=== PATIENT | male | born 1990 | race Caucasian/White ===

== ENCOUNTER 2016-09-24 16:46 | Emergency (ER) | payer OTHER ==
[~2016-09-24] VITALS: Ht 177.8 cm; Wt 114.0 kg
[~2016-09-24 16:46] MED LIST: ALPR.5T PO; ALPR0.5T7 PO; AMOX500C2 PO; ASPI1TAB22 PO; AURODEX10M RIGHT EAR; CLIN60GE2 TOP; ENAL20TA PO; HYDR-3720 PO; NAPR-243 PO; PANT40TA2 PO; SUCR1TAB36 PO; SULF1TAB38 PO; VILA20TA PO
--- NOTE | 2016-09-24 17:22 | ED Back Pain ---
General Stated Complaint: L SIDE BACK PAIN Source of Information: Patient Exam Limitations: No Limitations History of Present Illness Initial Comments To ER with sudden onset of excruciating left thoracic back pain that began today when he was lifting up the front of his lawnmower. Pain does not radiate. Pain is worsened by movement. He is already on Soma and etodolac for low back pain. Location: Paraspinous Muscles Timing/Duration: 1-2 Days Severity: Moderate Pain/Injury Location: Back Method of Injury: Other (lifting) Allergies and Home Medications Allergies Coded Allergies: meperidine (Unverified Allergy, Unknown, 09/24/14) Home Medications Alprazolam 0.5 Mg Tablet, 0.5 MG PO TID PRN for ANXIETY, (Reported) Enalapril Maleate 20 Mg Tablet, 20 MG PO DAILY, (Reported) Pantoprazole Sodium 40 Mg Tablet.dr, 40 MG PO DAILY, #30 Ref 6 Prescribed by: CAROLINE JERONIMO on 02/15/16 0911 Sucralfate 1 Gm Tablet, 1 GM PO QID, #120 Prescribed by: CAROLINE JERONIMO on 02/15/16 0911 Constitutional: see HPI EENTM: see HPI Respiratory: no symptoms reported Cardiovascular: no symptoms reported Genitourinary: no symptoms reported Musculoskeletal: see HPI, back pain Skin: no symptoms reported Psychiatric/Neurological: No Symptoms Reported Past Qekpwqe-Jkienm-Enqnfx Hx Patient Social History Type Used: Cigarettes Recent Foreign Travel: No Contact w/Someone Who Travel: No Immunizations Up To Date Tetanus Booster (TDap): Less than 5yrs Surgeries HX Surgeries: Yes (tonsill) Respiratory Hx Respiratory Disorders: No Cardiovascular Hx Cardiac Disorders: No Neurological Hx Neurological Disorders: No Reproductive System Hx Reproductive Disorders: No HIV/AIDS: No Genitourinary Hx Genitourinary Disorders: No Gastrointestinal Hx Gastrointestinal Disorders: No Gastrointestinal Disorders: Chronic Diarrhea Musculoskeletal Hx Musculoskeletal Disorders: No Endocrine Hx Endocrine Disorders: No HEENT HX ENT Disorders: Yes Loss of Vision: Denies Hearing Impairment: Denies Cancer Hx Cancer: No Psychosocial Hx Psychiatric Problems: No Behavioral Health Disorders: Anxiety Integumentary HX Skin/Integumentary Disorder: Yes (DRY SKIN) Blood Transfusions Hx Blood Disorders: No Adverse Reaction to a Blood Tr: No Family Medical History Family Medial History: Alcoholism 19 FATHER Arthritis G8 SISTER Colon cancer 19 MOTHER Hypertension 19 MOTHER GRANDMOTHER Myocardial infarction GRANDFATHER Severe allergy 19 MOTHER Thyroid disease 19 MOTHER No Family History of: AIDS Abdominal aortic aneurysm Cyrus's disease Alzheimer's disease Aphasia Asthma Cancer of mouth Cardiovascular disease Cataracts Completed stroke Congenital disease Congenital heart disease Coronary thrombosis Cystic fibrosis Deafness or hearing loss Dementia Diabetes mellitus Drug abuse Dysphasia Fibrocystic disease of breast Gastroenteritis Glaucoma Headache disorder Hypercholesterolemia Infertility Kidney disease Neoplasm Not obtainable due to adoption Osteoporosis Parkinson's disease Prostate cancer Psychosocial problem Respiratory disorder Seizure disorder Tuberculosis Visual disorder Physical Exam Vital Signs Capillary Refill : General Appearance: No Apparent Distress, WD/WN HEENT: PERRL/EOMI, TMs Normal Respiratory: No Accessory Muscle Use, No Respiratory Distress Gastrointestinal: Non Tender, Soft Back: Normal Inspection, Other (tenderness to the left side of the thoracic spine at about the T5 to T7 range. No erythema, no crepitus,) Extremity: Normal Capillary Refill, Normal Inspection Neurologic/Psychiatric: Alert, Oriented x3, No Motor/Sensory Deficits Skin: Normal Color, Warm/Dry Progress/Results/Core Measures Results/Orders My Orders Orders - LB CHEN APRN Ketorolac Injection (Toradol Injection) (09/24/16 17:30) Ribs, Left 2-3 Views (09/24/16 17:19) Lumbar Spine - 2-3 Views (09/24/16 17:19) Departure Impression Impression: Primary Impression: Back pain Disposition: 01 HOME, SELF-CARE Condition: Stable Departure-Patient Inst. Decision time for Depature: 17:22 Referrals: MANDY KILLIAN MD (PCP/Family) Primary Care Physician Patient Instructions: Upper Back Pain Add. Discharge Instructions: 1. Follow-up Dr. Killian tomorrow 2. Continue taking your etodolac and Soma. LB CHEN APRN Sep 24, 2016 17:22
[2016-09-24] MEDS ORDERED: KETOROLAC 60 MG/2 ML VIAL IM ONE (17:30)
--- NOTE | 2016-09-24 18:08 | Diagnostic Imaging Report ---
EXAMINATION: Left ribs, 3 views. COMPARISON: Chest radiographs September 24, 2014. HISTORY: 26-year-old male, mid to lower left-sided rib pain. FINDINGS: There is no identified left-sided rib fracture. There is no identified left-sided pneumothorax or pleural effusion. The left lung appears clear. IMPRESSION: No identified acute bony abnormality of the left ribs. Dictated by: Dictated on workstation # [id number]
--- NOTE | 2016-09-24 18:08 | Diagnostic Imaging Report ---
EXAMINATION: Lumbar spine radiographs, 3 views. COMPARISON: None. HISTORY: 26-year-old male, injury lifting mower. Mid to lower back pain on the left. FINDINGS: There are five normal type lumbar vertebral bodies. The alignment of the lumbar spine is unremarkable. There is no identified compression deformity or acute fracture. There are limitations for assessment of pars interarticularis defects without oblique views. The disc heights are well preserved. There are no facet degenerative changes. Unremarkable appearance of the sacroiliac joints. IMPRESSION: Normal radiographs of the lumbar spine. Dictated by: Dictated on workstation # [id number]
[2016-09-24 18:19] VITALS: BP 148/95
== END 2016-09-24 18:19 | disposition home or self-care (01) ==
LOC: EDUNIT# 16:46 → ER 16:48
DX: M54.5 Low back pain (principal)
CPT/HCPCS: 71100; 72100; 96372; 99281

== ENCOUNTER 2016-11-16 20:34 | Emergency (ER) | payer BC, OTHER ==
[~2016-11-16] VITALS: Ht 175.3 cm; Wt 109.0 kg
[2016-11-16] MEDS ORDERED: NS IV 1000 ML 1,000 ML IV ONE (21:12)
[2016-11-16] MEDS ORDERED: METOCLOPRAMIDE INJ 10 MG/2 ML (REGLAN) IVP ONE (21:15)
[2016-11-16] MEDS ORDERED: diphenhydrAMINE 50 MG/ML INJ (BENADRYL) IVP ONE (21:15)
[2016-11-16] MEDS ORDERED: KETOROLAC 30 MG/ML VIAL IVP ONE (21:15)
[2016-11-16] MEDS ORDERED: DEXAMETHASONE PF 10 MG/ML (DECADRON) VIAL IV ONE (21:15)
--- NOTE | 2016-11-16 21:45 | Diagnostic Imaging Report ---
PROCEDURE: CT head without contrast. TECHNIQUE: Multiple contiguous axial images were obtained through the brain without the use of intravenous contrast. INDICATION: Headache. COMPARISON: None. FINDINGS: No acute intracranial hemorrhage, mass effect or edema is seen. The wells-white junction is preserved. Ventricles appear normal. No focal abnormality is suspected. There is a small mucous retention cyst or polyp in the right maxillary sinus. IMPRESSION: No evidence of an acute intracranial abnormality. Incidental right maxillary sinus mucus retention cyst or polyp. Dictated by: Dictated on workstation # [id number]
--- NOTE | 2016-11-16 22:14 | ED Headache ---
General Chief Complaint: Head/Cervical Problems Stated Complaint: HEADACHE Nursing Triage Note: C/O HEADACHE X 2 DAYS Nursing Sepsis Screen: No Definite Risk Source: patient Exam Limitations: no limitations History of Present Illness Time seen by provider: 21:09 Initial Comments Patient presents c/ c/o RODRIGUEZ times 2 days. Gotten progressively worse. Feels like his head is going to explode. Has been working out in the heat which hasn' t helped. Has had one previous similar RODRIGUEZ in the past. RODRIGUEZ is diffuse/ generalized. Is photophobic. A little nauseated. No known fever. Timing/Duration: other (2 days) Severity/Quality: severe, constant, throbbing Location: global Prior Headaches/Recent Trauma: no recent headache/trauma, occasional headaches Modifying Factors: worse with exposure to light Associated Symptoms: denies symptoms Allergies and Home Medications Allergies Coded Allergies: meperidine (Unverified Allergy, Unknown, 09/24/14) Home Medications Enalapril Maleate 20 Mg Tablet, 20 MG PO DAILY, (Reported) Constitutional: see HPI Psychiatric/Neurological: See HPI, Headache All Other Systems Reviewed Negative Unless Noted: Yes Past Gfwihge-Tiyxva-Odvzmp Hx Patient Social History Alcohol Use: Occasionally Uses Recreational Drug Use: No Smoking Status: Former Smoker Type Used: Cigarettes 2nd Hand Smoke Exposure: No Recent Foreign Travel: No Contact w/Someone Who Travel: No Recent Infectious Disease Expo: No Recent Hopitalizations: No Immunizations Up To Date Tetanus Booster (TDap): Less than 5yrs Surgeries HX Surgeries: Yes (tonsill) Respiratory Hx Respiratory Disorders: No Cardiovascular Hx Cardiac Disorders: No Neurological Hx Neurological Disorders: No Neurological Disorders: Headaches /Migraines Reproductive System Hx Reproductive Disorders: No HIV/AIDS: No Genitourinary Hx Genitourinary Disorders: No Gastrointestinal Hx Gastrointestinal Disorders: No Gastrointestinal Disorders: Chronic Diarrhea Musculoskeletal Hx Musculoskeletal Disorders: No Endocrine Hx Endocrine Disorders: No HEENT HX ENT Disorders: Yes Loss of Vision: Denies Hearing Impairment: Denies Cancer Hx Cancer: No Psychosocial Hx Psychiatric Problems: No Behavioral Health Disorders: Anxiety Integumentary HX Skin/Integumentary Disorder: Yes (DRY SKIN) Blood Transfusions Hx Blood Disorders: No Adverse Reaction to a Blood Tr: No Family Medical History Family Medial History: Alcoholism 19 FATHER Arthritis G8 SISTER Colon cancer 19 MOTHER Hypertension 19 MOTHER GRANDMOTHER Myocardial infarction GRANDFATHER Severe allergy 19 MOTHER Thyroid disease 19 MOTHER No Family History of: AIDS Abdominal aortic aneurysm Cyrus's disease Alzheimer's disease Aphasia Asthma Cancer of mouth Cardiovascular disease Cataracts Completed stroke Congenital disease Congenital heart disease Coronary thrombosis Cystic fibrosis Deafness or hearing loss Dementia Diabetes mellitus Drug abuse Dysphasia Fibrocystic disease of breast Gastroenteritis Glaucoma Headache disorder Hypercholesterolemia Infertility Kidney disease Neoplasm Not obtainable due to adoption Osteoporosis Parkinson's disease Prostate cancer Psychosocial problem Respiratory disorder Seizure disorder Tuberculosis Visual disorder Physical Exam Vital Signs Vital Sign - Last 12Hours 11/16/16 20:47 Temp 98.1 Pulse 81 Resp 18 B/P (MAP) 170/114 Pulse Ox 97 Capillary Refill : Less Than 3 Seconds General Appearance: WD/WN, moderate distress HEENT: PERRL/EOMI, normal ENT inspection, photophobia Neck: normal inspection Cardiovascular: regular rate, rhythm Respiratory: no respiratory distress Psychiatric: alert, oriented x 3, other (appears obviously uncomfortable) Crainal Nerves: normal hearing, normal speech, PERRL Motor/Sensory: no motor deficit, no sensory deficit, no pronator drift, negative Babinski's sign Reflexes: 2+ Knee (R), 2+ Knee (L) Skin: warm/dry, No rash Progress/Results/Core Measures Results/Orders My Orders Orders - CECELIA UMANA DO Saline Lock/Iv-Start (11/16/16 21:12) Ct Head Wo (11/16/16 21:12) Saline Lock/Iv-Start (11/16/16 21:12) Ns Iv 1000 Ml (Sodium Chloride 0.9%) (11/16/16 21:12) Metoclopramide Injection (Reglan Injecti (11/16/16 21:15) Dexamethasone Pf Injection (Decadron Pf (11/16/16 21:15) Ketorolac Injection (Toradol Injection) (11/16/16 21:15) Diphenhydramine Injection (Benadryl Inje (11/16/16 21:15) Medications Given in ED Current Medications Medications Dose Ordered Sig/Jerson Route Start Time Stop Time Status Last Admin Dose Admin Dexamethasone Sodium Phosphate 10 mg ONCE ONCE IV 11/16/16 21:15 11/16/16 21:16 DC 11/16/16 21:33 10 MG Diphenhydramine HCl 50 mg ONCE ONCE IVP 11/16/16 21:15 11/16/16 21:16 DC 11/16/16 21:33 50 MG Ketorolac Tromethamine 30 mg ONCE ONCE IVP 11/16/16 21:15 11/16/16 21:16 DC 11/16/16 21:33 30 MG Metoclopramide HCl 10 mg ONCE ONCE IVP 11/16/16 21:15 11/16/16 21:16 DC 11/16/16 21:33 10 MG Sodium Chloride 1,000 ml @ 0 mls/hr Q0M ONCE IV 11/16/16 21:12 11/16/16 21:15 DC 11/16/16 21:32 0 MLS/HR Vital Signs/I&O Vital Sign - Last 12Hours 11/16/16 20:47 Temp 98.1 Pulse 81 Resp 18 B/P (MAP) 170/114 Pulse Ox 97 Blood Pressure Mean: 132 Progress Note : Progress Note Much improved p/ migraine cocktail. Wants to go home. Departure Impression Impression: Primary Impression: Migraine Disposition: 01 HOME, SELF-CARE Condition: Improved Departure-Patient Inst. Decision time for Depature: 22:13 Referrals: MANDY KILLIAN MD (PCP/Family) Primary Care Physician Patient Instructions: Migraine Headache (DC) CECELIA UMANA DO Nov 16, 2016 22:13
[2016-11-16 22:24] VITALS: BP 150/91
== END 2016-11-16 22:23 | disposition home or self-care (01) ==
LOC: EDUNIT# 20:34 → ER 20:36
DX: G43.909 Migraine, unspecified, not intractable, without status migrainosus (principal); Z87.891 Personal history of nicotine dependence
CPT/HCPCS: 70450

== ENCOUNTER 2018-03-24 11:53 | Emergency (ER) | payer BC, OTHER ==
[~2018-03-24] VITALS: Ht 177.8 cm; Wt 115.7 kg
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
--- NOTE | 2018-03-24 12:12 | ED GU-Male ---
General Chief Complaint: -Male Stated Complaint: PRESSURE BEHIND TESTACLES Nursing Triage Note: Patient advises that for one week he has been experincing testicular pain. He advises that it is uncomfortable to sit for prolonged periods of time and has become progressively worse. Source: patient Exam Limitations: no limitations History of Present Illness Date Seen by Provider: Mar 24, 2018 Time Seen by Provider: 11:56 Initial Comments The patient presents to the ER by private conveyance with chief complaint of having some left inguinal pain. His is worse when he bends over or squats. He says been very uncomfortable sitting down and asked to lift his leg up. His pain started about 7 days ago and is progressively gotten worst. He's never had an inguinal hernia or any surgeries on his abdomen. He does take blood pressure medicines and follow-up with Dr. Pillai. He has not been seen for this pain yet. Bowel movement this morning and has been having regular bowel day. No fevers or chills. No dysuria comfort or discharge. Allergies and Home Medications Allergies Coded Allergies: meperidine (Unverified Allergy, Unknown, 03/24/18) Home Medications Enalapril Maleate 20 Mg Tablet, 20 MG PO DAILY, (Reported) Patient Home Medication List Home Medication List Reviewed: Yes Review of Systems Review of Systems Constitutional: No chills, No diaphoresis EENTM: No hearing loss, No ear pain Respiratory: No cough, No short of breath Cardiovascular: No chest pain, No edema Gastrointestinal: No abdominal pain, No constipation, No diarrhea Genitourinary: denies discharge, denies dysuria Past Ohofjxi-Ylpshs-Koqvla Hx Patient Social History Alcohol Use: Denies Use Recreational Drug Use: No Smoking Status: Never a Smoker Type Used: Cigarettes 2nd Hand Smoke Exposure: No Recent Foreign Travel: No Contact w/Someone Who Travel: No Recent Infectious Disease Expo: No Recent Hopitalizations: No Immunizations Up To Date Tetanus Booster (TDap): Less than 5yrs Past Medical History Surgeries: Yes Respiratory: No Cardiac: Yes Hypertension Neurological: Yes Headaches /Migraines Reproductive Disorders: No HIV/AIDS: No Genitourinary: No Gastrointestinal: No Chronic Diarrhea Musculoskeletal: No Endocrine: No Loss of Vision: Denies Hearing Impairment: Denies Cancer: No Psychosocial: Yes Anxiety Integumentary: Yes (DRY SKIN) Blood Disorders: No Adverse Reaction/Blood Tranf: No Family Medical History Alcoholism 19 FATHER Arthritis G8 SISTER Colon cancer 19 MOTHER Hypertension 19 MOTHER GRANDMOTHER Myocardial infarction GRANDFATHER Severe allergy 19 MOTHER Thyroid disease 19 MOTHER No Family History of: AIDS Abdominal aortic aneurysm [place]'s disease Alzheimer's disease Aphasia Asthma Cancer of mouth Cardiovascular disease Cataracts Completed stroke Congenital disease Congenital heart disease Coronary thrombosis Cystic fibrosis Deafness or hearing loss Dementia Diabetes mellitus Drug abuse Dysphasia Fibrocystic disease of breast Gastroenteritis Glaucoma Headache disorder Hypercholesterolemia Infertility Kidney disease Neoplasm Not obtainable due to adoption Osteoporosis Parkinson's disease Prostate cancer Psychosocial problem Respiratory disorder Seizure disorder Tuberculosis Visual disorder Physical Exam Vital Signs Vital Signs - First Documented Capillary Refill : Less Than 3 Seconds Height, Weight, BMI Height: 5'10.00" Weight: 255lbs. 4.0oz. 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 The hernia is easily reducible. He had a bowel movement today. We have encouraged him to stay regular with some fiber and follow up with the surgeon. He had an upper endoscopy done by Dr. Garcia and would prefer to go back to him so we'll make referral back to Dr. Garcia. Departure Impression Primary Impression: Left inguinal hernia Disposition: 01 HOME, SELF-CARE Condition: Stable Departure-Patient Inst. Decision time for Depature: 12:10 Referrals: KATEY GARCIA FLOYD R MD (PCP/Family) Primary Care Physician Patient Instructions: Groin Hernia (DC) Add. Discharge Instructions: Tomorrow morning call Dr. Garcia's office at the above mentioned phone number and request an appointment for your left inguinal hernia. Eat a high-fiber diet such as please see green vegetables, FiberCon, Metamucil etc. If you have a hard time having a bowel movement you can use MiraLAX. If you 're unable to pass a bowel movement or your having constant, bulging, worsening pain then you should return to the ER for further evaluation. Heat, Tylenol 1000 mg every 8 hours, ibuprofen 800 mg every 8 hours as needed for pain. No lifting over 10 pounds until released by the surgeon. All discharge instructions reviewed with patient and/or family. Voiced understanding. Work/School Note: Work Release Form Date Seen in the Emergency Department: Mar 24, 2018 Return to Work: Mar 25, 2018 Restrictions: Need Release from Doctor Other Restrictions Listed Below: Do not lift over 10 pounds until released by Copy Copies To 1: KATEY GARCIA DO; MANDY PILLAI MD, TITUS J Mar 24, 2018 12:12
[2018-03-24 12:18] VITALS: BP 149/105
== END 2018-03-24 12:21 | disposition home or self-care (01) ==
LOC: EDUNIT# 11:53 → ER 11:54
DX: K40.90 Unilateral inguinal hernia, without obstruction or gangrene, not specified as recurrent (principal); I10 Essential (primary) hypertension; G43.909 Migraine, unspecified, not intractable, without status migrainosus; F41.9 Anxiety disorder, unspecified; Z87.19 Personal history of other diseases of the digestive system; Z88.8 Allergy status to other drugs, medicaments and biological substances; Z80.0 Family history of malignant neoplasm of digestive organs; Z82.49 Family history of ischemic heart disease and other diseases of the circulatory system
CPT/HCPCS: 99283

== ENCOUNTER → 2018-04-11 | Outpatient (CLI) | payer OTHER ==
--- NOTE | 2018-04-11 16:23 | Diagnostic Imaging Report ---
Indication: Left groin pain one week ago. Sonographic interrogation of left groin demonstrates 1.3 x 1.8 x 0.9 cm lymph node. No fluid collection or other mass is seen. No hernia is detected. Impression: Left groin lymph node. No other abnormality is detected. Dictated by: Dictated on workstation # [id number]
== END ==
LOC: RAD 14:38
PROVIDERS: ATTEND Surgery
DX: R10.31 Right lower quadrant pain (principal); R10.32 Left lower quadrant pain
CPT/HCPCS: 76881

== ENCOUNTER 2019-10-23 12:49 | Emergency (ER) | payer BC, OTHER ==
[~2019-10-23] VITALS: Ht 177 cm; Wt 121.0 kg
[2019-10-23] MEDS ORDERED: KETOROLAC 30 MG/ML VIAL IVP ONE (13:00)
[2019-10-23] MEDS ORDERED: meTOprolol 5 MG/5 ML (LOPRESSOR) VIAL IV ONE (13:00)
[2019-10-23] MEDS ORDERED: PROCHLORPERAZINE 10 MG/2ML INJ (COMPAZINE) IV ONE (13:00)
[2019-10-23] MEDS ORDERED: diphenhydrAMINE 50 MG/ML INJ (BENADRYL) IVP ONE (13:00)
--- NOTE | 2019-10-23 13:02 | ED Headache ---
General Stated Complaint: HIGH BP;HEADACHE Source: patient Exam Limitations: no limitations History of Present Illness Date Seen by Provider: October 23, 2019 Time Seen by Provider: 13:01 Initial Comments To ER per private vehicle with reports of high blood pressure about 165/90. He has a headache for about the past 3 days without vomiting. No fever no chills no neck stiffness. He had been off of his blood pressure medications for quite a while, recently restarted on it. Timing/Duration: other (2-3 days) Severity/Quality: moderate, constant Location: frontal Associated Symptoms: No confusion, No nausea/vomiting, No stiff neck Allergies and Home Medications Allergies Coded Allergies: meperidine (Unverified Allergy, Unknown, 03/24/18) Home Medications Enalapril Maleate 20 Mg Tablet, 20 MG PO DAILY, (Reported) Patient Home Medication List Home Medication List Reviewed: Yes Review of Systems Review of Systems Constitutional: see HPI Eyes: No Symptoms Reported Ears, Nose, Mouth, Throat: no symptoms reported Respiratory: no symptoms reported Cardiovascular: no symptoms reported Genitourinary: no symptoms reported Musculoskeletal: no symptoms reported Skin: see HPI Psychiatric/Neurological: See HPI, Headache Past [id number]-[id number] Hx Patient Social History Type Used: Cigarettes 2nd Hand Smoke Exposure: No Recent Foreign Travel: No Contact w/Someone Who Travel: No Recent Hopitalizations: No Immunizations Up To Date Tetanus Booster (TDap): Less than 5yrs Past Medical History Surgeries: Yes Respiratory: No Cardiac: Yes Hypertension Neurological: Yes Headaches /Migraines Reproductive Disorders: No HIV/AIDS: No Genitourinary: No Gastrointestinal: No Chronic Diarrhea Musculoskeletal: No Endocrine: No Loss of Vision: Denies Hearing Impairment: Denies Cancer: No Psychosocial: Yes Anxiety Integumentary: Yes (DRY SKIN) Blood Disorders: No Adverse Reaction/Blood Tranf: No Family Medical History Alcoholism 19 FATHER Arthritis G8 SISTER Colon cancer 19 MOTHER Hypertension 19 MOTHER GRANDMOTHER Myocardial infarction GRANDFATHER Severe allergy 19 MOTHER Thyroid disease 19 MOTHER No Family History of: AIDS Abdominal aortic aneurysm [place]'s disease Alzheimer's disease Aphasia Asthma Cancer of mouth Cardiovascular disease Cataracts Completed stroke Congenital disease Congenital heart disease Coronary thrombosis Cystic fibrosis Deafness or hearing loss Dementia Diabetes mellitus Drug abuse Dysphasia Fibrocystic disease of breast Gastroenteritis Glaucoma Headache disorder Hypercholesterolemia Infertility Kidney disease Neoplasm Not obtainable due to adoption Osteoporosis Parkinson's disease Prostate cancer Psychosocial problem Respiratory disorder Seizure disorder Tuberculosis Visual disorder Physical Exam Vital Signs Vital Signs - First Documented 10/23/19 13:00 Temp 36.6 Pulse 112 Resp 18 B/P (MAP) 185/123 (143) Pulse Ox 97 O2 Delivery Room Air Capillary Refill : Height, Weight, BMI Height: 5'10.00" Weight: 255lbs. 4.0oz. 115.836341gw; 36.1 BMI Method:Stated General Appearance: WD/WN, no apparent distress HEENT: PERRL/EOMI, normal ENT inspection Neck: non-tender, full range of motion Respiratory: no respiratory distress, no accessory muscle use Gastrointestinal: normal bowel sounds, non tender Extremities: normal range of motion, non-tender Psychiatric: alert, oriented x 3 Crainal Nerves: normal hearing, normal speech, PERRL Skin: normal color, warm/dry Progress/Results/Core Measures Results/Orders Lab Results Laboratory Tests Test 10/23/19 13:20 Range/Units White Blood Count 8.7 4.3-11.0 10^3/uL Red Blood Count 5.81 4.35-5.85 10^6/uL Hemoglobin 18.1 H 13.3-17.7 G/DL Hematocrit 51 40-54 % Mean Corpuscular Volume 87 80-99 FL Mean Corpuscular Hemoglobin 31 25-34 PG Mean Corpuscular Hemoglobin Concent 36 32-36 G/DL Red Cell Distribution Width 13.0 10.0-14.5 % Platelet Count 190 130-400 10^3/uL Mean Platelet Volume 9.3 7.4-10.4 FL Neutrophils (%) (Auto) 56 42-75 % Lymphocytes (%) (Auto) 32 12-44 % Monocytes (%) (Auto) 8 0-12 % Eosinophils (%) (Auto) 4 0-10 % Basophils (%) (Auto) 0 0-10 % Neutrophils # (Auto) 4.8 1.8-7.8 X 10^3 Lymphocytes # (Auto) 2.8 1.0-4.0 X 10^3 Monocytes # (Auto) 0.7 0.0-1.0 X 10^3 Eosinophils # (Auto) 0.4 H 0.0-0.3 10^3/uL Basophils # (Auto) 0.0 0.0-0.1 10^3/uL Sodium Level 139 135-145 MMOL/L Potassium Level 3.9 3.6-5.0 MMOL/L Chloride Level 105 98-107 MMOL/L Carbon Dioxide Level 23 21-32 MMOL/L Anion Gap 11 5-14 MMOL/L Blood Urea Nitrogen 9 7-18 MG/DL Creatinine 0.82 0.60-1.30 MG/DL Estimat Glomerular Filtration Rate > 60 BUN/Creatinine Ratio 11 Glucose Level 85 70-105 MG/DL Calcium Level 9.3 8.5-10.1 MG/DL My Orders Orders - LB CHEN APRN Cbc With Automated Diff (10/23/19 12:57) Basic Metabolic Panel (10/23/19 12:57) Ed Iv/Invasive Line Start (10/23/19 12:57) Metoprolol Tartrate Injection (Lopressor (10/23/19 13:00) Ketorolac Injection (Toradol Injection) (10/23/19 13:00) Prochlorperazine Injection (Compazine In (10/23/19 13:00) Diphenhydramine Injection (Benadryl Inje (10/23/19 13:00) Erythrocyte Sedimentation Rate (10/23/19 13:05) Medications Given in ED Current Medications Medications Dose Ordered Sig/Jerson Route Start Time Stop Time Status Last Admin Dose Admin Diphenhydramine HCl 25 mg ONCE ONCE IVP 10/23/19 13:00 10/23/19 13:01 DC 10/23/19 13:07 25 MG Ketorolac Tromethamine 15 mg ONCE ONCE IVP 10/23/19 13:00 10/23/19 13:01 DC 10/23/19 13:11 15 MG Metoprolol Tartrate 5 mg ONCE ONCE IV 10/23/19 13:00 10/23/19 13:01 DC 10/23/19 13:20 5 MG Prochlorperazine Edisylate 5 mg ONCE ONCE IV 10/23/19 13:00 10/23/19 13:01 DC 10/23/19 13:12 5 MG Vital Signs/I&O 10/23/19 10/23/19 13:00 13:33 Temp 36.6 Pulse 112 86 Resp 18 16 B/P (MAP) 185/123 (143) 141/89 (106) Pulse Ox 97 95 O2 Delivery Room Air Room Air Departure Communication (Admissions) I did recommend a CT scan of the head to evaluate the cause of headache. He declines, states he does not want that. 1355- headache is gone, blood pressure down to 137/85 heart rate 83. Hed like to go on home now. Impression Primary Impression: Hypertension Qualified Codes: I10 - Essential (primary) hypertension Additional Impression: Headache Qualified Codes: R51 - Headache Disposition: 01 HOME, SELF-CARE Condition: Stable Departure-Patient Inst. Decision time for Depature: 13:56 Referrals: MANDY KLILIAN MD (PCP/Family) Primary Care Physician Patient Instructions: Headache, Adult, High Blood Pressure (DC) Add. Discharge Instructions: 1. Return to ER for any concerns 2. Follow-up with your doctor next week LB CHEN APRN October 23, 2019 13:02
[2019-10-23 13:33] VITALS: BP 141/89
[2019-10-23 13:36] LABS: BASOPHILS % (AUTO) 0 % (0-10); EOSINOPHILS # (AUTO) 0.4 10^3/uL (0.0-0.3); EOSINOPHILS % (AUTO) 4 % (0-10); HEMATOCRIT 51 % (40-54); HEMOGLOBIN 18.1 G/DL (13.3-17.7); LYMPHOCYTES # (AUTO) 2.8 X 10^3 (1.0-4.0); LYMPHOCYTES % (AUTO) 32 % (12-44); MEAN CORPUSCULAR HEMOGLOBIN 31 PG (25-34); MEAN CORPUSCULAR HGB CONC 36 G/DL (32-36); MEAN CORPUSCULAR VOLUME 87 FL (80-99); MEAN PLATELET VOLUME 9.3 FL (7.4-10.4); MONOCYTES # (AUTO) 0.7 X 10^3 (0.0-1.0); MONOCYTES % (AUTO) 8 % (0-12); NEUTROPHILS # (AUTO) 4.8 X 10^3 (1.8-7.8); NEUTROPHILS % (AUTO) 56 % (42-75); PLATELET COUNT 190 10^3/uL (130-400); WHITE BLOOD COUNT 8.7 10^3/uL (4.3-11.0)
[2019-10-23 13:42] LABS: CHLORIDE 105 MMOL/L (98-107); POTASSIUM 3.9 MMOL/L (3.6-5.0); SODIUM 139 MMOL/L (135-145)
[2019-10-23 13:44] LABS: CALCIUM 9.3 MG/DL (8.5-10.1); GLUCOSE 85 MG/DL (70-105)
[2019-10-23 13:46] LABS: CARBON DIOXIDE 23 MMOL/L (21-32)
[2019-10-23 13:48] LABS: CREATININE SERUM 0.82 MG/DL (0.60-1.30); GFR ESTIMATED > 60
[2019-10-23 13:49] LABS: BUN/CREATININE RATIO 11
[2019-10-23 13:58] VITALS: BP 137/85
[2019-10-23 13:59] VITALS: BP 137/85
[2019-10-23 14:00] LABS: ERYTHROCYTE SEDIMENTATION RATE 1 MM/HR (0-15)
--- OUTSIDE RECORDS SUMMARY | 2019-10-23 14:11 | XMS REPORT ---
Author Author [facility] Address [address] [address] Care Team Providers Care Operations Dispatcher Name Role Phone SEGLIE, MANDY R Unavailable LB CHEN APRN Unavailable Unavailable MARIA D CASTRO, MANDY R Unavailable Unavailable MARIA D CASTRO, MANDY R Unavailable Unavailable SEGLIE, MANDY R Unavailable CECELIA UMANA DO Unavailable Unavailable GARCIA DO, KATYE D Unavailable Unavailable GRUPO DO, ABBY K Unavailable Unavailable GARCIA DO, KATEY D Unavailable Unavailable IRA CASTRO, VICTOR HUGO Sandy Unavailable Unavailable Unavailable Unavailable Unavailable Unavailable Allergies No Information Medications No Information Problems Active Problems Problem Normalized Date Last Normalized Normalized Provider Fa cility Classification Problem(s) Recorded Problem Problem Sta tus Duration Acute Acute Episodic Active MANDY SEGLIE , Not Avai lable bronchitis (4 bronchitis MD (31441) sources.) Other upper Acute upper Episodic Active MANDY SEGLIE , Not Available respiratory respiratory MD (26700) infections (4 infections of sources.) unspecified site Allergic Allergy status Episodic Active MANDY SEGLIE , No t Available reactions (15 to other MD (58603) sources.) drugs, medicaments and biological substances status Translations: [ DIARRHEA] Anxiety Anxiety Chronic Active SUYAPA KENY Not Availa ble disorders (6 disorder, (98652) sources.) unspecified Essential Essential Chronic Active SUYAPA KENY Not Avail able hypertension (primary) (56729) (6 sources.) hypertension Unclassified Family history Episodic Active SUYAPA KENY N ot Available (6 sources.) of malignant (51725) neoplasm of digestive organs Translations: [ FAMILY HX OF ISCHEM HEART DIS AND OTH DI] Gastritis and Gastritis, Episodic Active KATEY GARCIA , No t Available duodenitis (3 unspecified, DO (18545) sources.) without bleeding Esophageal Gastro-esophag Chronic Active KATEY GACRIA , N ot Available disorders (6 eal reflux DO (56629) sources.) disease without esophagitis Headache; Headache no information Active CECELIA UMANA Not Available including Translations: , DO (40485) migraine (20 [ MIGRAINE, sources.) UNSP, NOT INTRACTABLE, WITHOUT] Abdominal pain Left lower Episodic Active KATEY GARCIA , V CH Via (10 sources.) quadrant pain DO [place] Translations: Hospital - [ RIGHT LOWER Cooper QUADRANT PAIN, (48006) LEFT LOWER QUADRANT PAIN, LEFT LOWER QUADRANT PAIN] Headache, Migraine, Chronic Active MANDY SEGLIE Via [place] ti including unspecified, [address] Hospital migraine (7 not Cooper sources.) intractable, (81580) without status migrainosus Malaise and Other malaise Episodic Active MANDY PILLAI , N ot Available fatigue (4 and fatigue MD (84209) sources.) Screening and Personal Episodic Active CECELIA DONG Not Available history of history of , DO (09997) mental health nicotine and substance dependence abuse codes (13 sources.) Other Personal Episodic Active SUYAPA KENY Not Availa ble gastrointestin history of (77390) al disorders other diseases (6 sources.) of the digestive system Abdominal Unilateral Episodic Active KATEY GARCIA , Not Av ailable hernia (10 inguinal DO (35247) sources.) hernia, without obstruction or gangrene, not specified as recurrent Translations: [ DIAPHRAGMATIC HERNIA WITHOUT OBSTRUCTION] Past or Other Problems Problem Normalized Date Last Normalized Normalized Provider Fa cility Classification Problem(s) Recorded Problem Problem Sta tus Duration External cause Accidents no information no information ABBY DIEUDONNE O , DO Not Available codes: caused by (38863) Cut/antunez (1 other source.) specified cutting and piercing instruments or objects Other Encounter for Episodic Completed ABBY GRUPO , DO Not Available aftercare (3 removal of (21853) sources.) sutures External cause Fall resulting no information no information L JANEEN GRUPO , DO Not Available codes: Fall (1 in striking (79080) source.) against sharp object External cause Home accidents no information no information L JANEEN GRUPO , DO Not Available codes: Place (48754) of occurrence (1 source.) Open wounds of Open wound of Episodic Completed ABBY GRUPO , DO Not Available extremities (1 upper arm, (21280) source.) without mention of complication Nonspecific Other chest Episodic Completed ABBY GRUPO , DO Not Available chest pain (2 pain (74522) sources.) External cause Other external no information no information Enoch LOMBARDO , DO Not Available codes: cause status (67737) Unspecified (1 source.) Other Pain in limb Episodic Completed MANDY PILLAI , Not Available connective MD (45857) tissue disease (2 sources.) Other lower Painful Episodic Completed ABBY LOMABRDO , DO Not Av ailable respiratory respiration (46828) disease (2 sources.) Procedures The data below is from unstructured sourcesNo known history of procedures.No known history of procedures.No known history of procedures.No procedure information available.No procedure information availab le. Immunizations The data below is from unstructured sourcesNo immunization records.No immunization records.No immunization records. Results The data below is from unstructured sourcesNo known relevant diagnostic tests, laboratory data and/or discharge summary.No known relevant diagnostic tests, laboratory data and/or discharge summary.No known relevant diagnostic tests, laboratory data and/or discharge summary.No relevant diagnostic test, laboratory data and/or discharge summary information availab le.No relevant diagnostic test, laboratory data and/or discharge summary informa tion available. Vital Signs The data below is from unstructured sources Vital Response Date/Time Height (Feet) 5 feet 05/2016 2:23pm Height (Inches) 10.00 inches 02/14/2016 2:23pm Height (Calculated Centimeters) 177. 860604 cm 02/14/2016 2:23pm Weight (Pounds) 251 pounds 02/14/2016 2:23pm Weight (Ounces) 4.0 oz 0 02/14/2016 2:23pm Weight (Calculated Grams) 182457.084 gm 02/14/2016 2:23pm Weight (Calculated Kilograms) 113.96 5084 kilograms 02/14/2016 2:23pm Calculated BMI 36.01 05/2016 2:23pm Vital Response Date/Time Temperature (Fahrenheit) 97.8 degree s F (97.6 - 99.5) 02/15/2016 10:55am Temperature (Calculated Celsius) 36. 79739 degrees C (36.4 - 37.5) 02/15/2016 10:55am Temperature Source Tympanic 02/15/2016 10:55am Pulse Rate (adult) 65 bpm (60 - 90) 02/15/2016 10:55am Respiratory Rate 20 bpm (12 - 24) 02/15/2016 10:55am O2 Sat by Pulse Oximetry 98 % (88 - 100) 02/15/2016 10:55am Blood Pressure 110/61 mm Hg 02/15/2016 10:55am Blood Pressure Mean 77 mm Hg 02/15/2016 7:50am Pain Numeric Pain Scale 0-No Pain 02/15/2016 10:55am Pain Intensity 0 2015 10:00am Height (Feet) 5 feet 7:55am Height (Inches) 10.00 inches 02/15/2016 7:55am Height (Calculated Centimeters) 177. 161752 cm 02/15/2016 7:55am Weight (Pounds) 251 pounds 02/15/2016 7:55am Weight (Ounces) 4.0 oz 0 02/15/2016 7:55am Weight (Calculated Grams) 224439.084 gm 02/15/2016 7:55am Weight (Calculated Kilograms) 113.96 5084 kilograms 02/15/2016 7:55am Calculated BMI 36.1 02/02 7:45am Vital Response Date/Time Temperature (Fahrenheit) 98.2 degree s F (97.6 - 99.5) 09/24/2016 5:41pm Temperature (Calculated Celsius) 36. 42434 degrees C (36.4 - 37.5) 09/24/2016 5:41pm Temperature Source Tympanic 09/24/2016 5:41pm Pulse Rate (adult) 88 bpm (60 - 90) 09/24/2016 5:21pm Respiratory Rate 16 bpm (12 - 24) 09/24/2016 5:21pm Blood Pressure 164/104 mm Hg 09/24/2016 5:21pm Blood Pressure Mean 124 mm Hg 09/24/2016 5:21pm Pain Numeric Pain Scale 8 5:41pm Height (Feet) 5 feet 5:21pm Height (Inches) 10.00 inches 09/24/2016 5:21pm Height (Calculated Centimeters) 177. 445657 cm 09/24/2016 5:21pm Weight (Pounds) 251 pounds 09/24/2016 5:21pm Weight (Ounces) 4.0 oz 0 09/24/2016 5:21pm Weight (Calculated Grams) 855386.084 gm 09/24/2016 5:21pm Weight (Calculated Kilograms) 113.96 5084 kilograms 09/24/2016 5:21pm Calculated BMI 36.1 09/03 5:21pm Capillary Refill Capillary Refill Less Than 3 Seconds 09/24/2016 5:21pm Vital Response Date/Time Temperature (Fahrenheit) 97.6 degree s F (97.6 - 99.5) Temperature (Calculated Celsius) 36. 78251 degrees C (36.4 - 37.5) Temperature Source Temporal Pulse Rate (adult) 103 bpm (60 - 90) Respiratory Rate 20 bpm (12 - 24) O2 Sat by Pulse Oximetry 96 % (88 - 100) Blood Pressure 128/68 mm Hg Pain Pain Intensity 0 Height (Feet) 5 feet Height (Inches) 10.00 inches Height (Calculated Centimeters) 177. 426677 cm Weight (Pounds) 251 pounds Weight (Calculated Grams) 784578.686 gm Weight (Calculated Kilograms) 113.85 1686 kilograms Calculated BMI 36.01 Vital Response Date/Time Temperature (Fahrenheit) 98.5 degree s F (97.6 - 99.5) 03/24/2018 12:02pm Temperature (Calculated Celsius) 36. 94138 degrees C (36.4 - 37.5) 03/24/2018 12:02pm Temperature Source Tympanic 03/24/2018 12:02pm Pulse Rate (adult) 86 bpm (60 - 90) 03/24/2018 12:18pm Respiratory Rate 18 bpm (12 - 24) 03/24/2018 12:18pm O2 Sat by Pulse Oximetry 98 % (88 - 100) 03/24/2018 12:18pm Blood Pressure 149/105 mm Hg 03/24/2018 12:18pm Blood Pressure Mean 120 mm Hg (65 - 110) 03/24/2018 12:18pm Pain Numeric Pain Scale 8 12:18pm Height (Feet) 5 feet 12:02pm Height (Inches) 10.00 inches 03/24/2018 12:02pm Height (Calculated Centimeters) 177. 100145 cm 03/24/2018 12:02pm Height Method Stated 12:02pm Weight (Pounds) 255 pounds 03/24/2018 12:02pm Weight (Calculated Grams) 866558.06 gm 03/24/2018 12:02pm Weight (Calculated Kilograms) 115.66 6055 kilograms 03/24/2018 12:02pm Weight Method Stated 12:02pm Capillary Refill Capillary Refill Less Than 3 Seconds 03/24/2018 12:02pm Height 5 ft 10 in 2017 12:02pm Weight 255 lb 03/24/2018 12:02pm Body Mass Index 36.6 kg/m^2 03/24/2018 12:02pm Vital Response Date/Time Temperature (Fahrenheit) 98.5 degree s F (97.6 - 99.5) 03/24/2018 12:02pm Temperature (Calculated Celsius) 36. 36159 degrees C (36.4 - 37.5) 03/24/2018 12:02pm Temperature Source Tympanic 03/24/2018 12:02pm Pulse Rate (adult) 86 bpm (60 - 90) 03/24/2018 12:18pm Respiratory Rate 18 bpm (12 - 24) 03/24/2018 12:18pm O2 Sat by Pulse Oximetry 98 % (88 - 100) 03/24/2018 12:18pm Blood Pressure 149/105 mm Hg 03/24/2018 12:18pm Blood Pressure Mean 120 mm Hg (65 - 110) 03/24/2018 12:18pm Pain Numeric Pain Scale 8 12:18pm Height (Feet) 5 feet 12:02pm Height (Inches) 10.00 inches 03/24/2018 12:02pm Height (Calculated Centimeters) 177. 746962 cm 03/24/2018 12:02pm Height Method Stated 12:02pm Weight (Pounds) 255 pounds 03/24/2018 12:02pm Weight (Calculated Grams) 008755.06 gm 03/24/2018 12:02pm Weight (Calculated Kilograms) 115.66 6055 kilograms 03/24/2018 12:02pm Weight Method Stated 12:02pm Capillary Refill Capillary Refill Less Than 3 Seconds 03/24/2018 12:02pm Height 5 ft 10 in 2017 12:02pm Weight 255 lb 03/24/2018 12:02pm Body Mass Index 36.6 kg/m^2 03/24/2018 12:02pm Interventions No Information Plan of Treatment The data below is from unstructured sources Discharge Date 02/14/16 2:32pm Prescriptions See Medication Section Discharge Date 02/15/16 11:05am Instructions/Education Provided EGD- ESOPHAGOGASTRODUODENOSCOPY Hiatal Hernia (GEN) Gastritis (GEN) Prescriptions See Medication Section Discharge Date 09/24/16 6:19pm Disposition 01 HOME, SELF-CARE Condition at Discharge Stable Instructions/Education Provided Uppe r Back Pain Prescriptions See Medication Section Referrals MANDY PILLAI MD Order Date: Primary Care Physician Address: [address] [place] [address] Additional Instructions/Education 1. Follow-up Dr. Pillai tomorrow 2. Continue taking your etodolac and Steven a. Discharge Date 09/25/14 12:59pm Disposition 01 HOME, SELF-CARE Instructions/Education Provided Comm unity-acquired Pneumonia (GEN) Prescriptions See Medications Sectio n Discharge Date 03/24/18 12:21pm Disposition 01 HOME, SELF-CARE Condition at Discharge Stable Instructions/Education Provided Groi n Hernia (DC) Forms Provided Work Release Form Prescriptions See Medication Section Referrals KATEY GARCIA DO Address: [address] [place] [address] MANDY PILLAI MD Order Date: Primary Care Physician Address: [address] [place] [address] Note: MANDY PILLAI MD Order Date: Primary Care Physician Address: [address] [place] [address] Note: Additional Instructions/Education To ward morning call Dr. Garcia's office at the above mentioned phone number and request an appointment for your left inguinal hernia. Eat a high-fiber diet such as please see green vegetables, FiberCon, Metamucil etc. If you have a hard time having a bowel movement you can use MiraLAX. If you're unable to pass a bowel movement or your having constant, bulging, worsening pain then you should return to the ER for further evaluation. Heat, Tylenol 1000 mg every 8 hours, ibuprofen 800 mg every 8 hours as needed for pain. No lifting over 10 pounds until released by the surgeon. All discharge instructions reviewed with patient and/or family. Voiced understanding. Discharge Date 03/24/18 12:21pm Disposition 01 HOME, SELF-CARE Condition at Discharge Stable Instructions/Education Provided Groi n Hernia (DC) Forms Provided Work Release Form Prescriptions See Medication Section Referrals KATEY GARCIA DO Address: [address] [place] [address] MANDY PILLAI MD Order Date: Primary Care Physician Address: [address] [place] [address] Note: MANDY PILLAI MD Order Date: Primary Care Physician Address: [address] [place] [address] Note: Additional Instructions/Education To ward morning call Dr. Garcia's office at the above mentioned phone number and request an appointment for your left inguinal hernia. Eat a high-fiber diet such as please see green vegetables, FiberCon, Metamucil etc. If you have a hard time having a bowel movement you can use MiraLAX. If you're unable to pass a bowel movement or your having constant, bulging, worsening pain then you should return to the ER for further evaluation. Heat, Tylenol 1000 mg every 8 hours, ibuprofen 800 mg every 8 hours as needed for pain. No lifting over 10 pounds until released by the surgeon. All discharge instructions reviewed with patient and/or family. Voiced understanding. Goals No Information Social History No Information Functional Status The data below is from unstructured sources Query Response Date Darrion rded Comprehension Ability Understands Co ncepts September 24, 2014 5:32pm No functional status information available. Mental Status No Information Encounters Encounter Normalized Encounter Encounter Diagnosis Care Provi maryjane Organization Date Type 10-23-2019 Emergency department no information VICTOR HUGO JAVIER MD [facility] [address] [place] patient visit (no phone) [facility] (no phone) 03-24-2018 Emergency department no information SUYAPA BUSTILLO Work no organization name - patient visit Phone: 03-24-2018 11-16-2016 Emergency department no information no name no organization name - patient visit 11-16-2016 12-16-2011 Emergency department no information no name no organization name - patient visit 12-16-2011 05-29-2011 Emergency department no information no name no organization name - patient visit 05-29-2011 05-18-2011 Emergency department no information no name no organization name - patient visit 05-18-2011 04-11-2018 Patient encounter no information no name no or ganization name 03-24-2018 Patient encounter no information no name no or ganization name 02-15-2016 Patient encounter no information no name no or ganization name - 02-15-2016 06-16-2013 Patient encounter no information no name no or ganization name 03-18-2013 Patient encounter no information no name no or ganization name - 06-15-2013 03-18-2013 Patient encounter no information no name no or ganization name 04-11-2018 Patient encounter no information no name no or ganization name procedure 11-16-2016 Patient encounter no information no name no or ganization name procedure 11-29-2011 Patient encounter no information no name no or ganization name procedure no information Encounter for other no name no organiz ation name preprocedural examination Medical Equipment No Information Payers Normalized Payer Value [facility] [id number]) Advance Directives Directive Response Recor ded Date/Time Advance Directives No 2:23pm Health Care Power of Clean Rice Broker No 02/14/16 2:23pm Organ Donor Yes 02/14/16 2:23pm Resuscitation Status Full Code 02/14/16 2:23pm Directive Response Recor ded Date/Time Advance Directives No 7:55am Health Care Power of Clean Rice Broker No 02/15/16 7:55am Organ Donor Yes 02/15/16 7:55am Resuscitation Status Full Code 02/15/16 7:55am Directive Response Recor ded Date/Time Advance Directives No 5:21pm Health Care Power of Clean Rice Broker No 09/24/16 5:21pm Organ Donor Yes 09/24/16 5:21pm Resuscitation Status Full Code 09/24/16 5:21pm Directive Response Recor ded Date/Time Advance Directives No 2:21pm Health Care Power of Clean Rice Broker No 09/24/14 2:21pm Organ Donor Yes 05/18/11 7:52pm Resuscitation Status Full Code 09/24/14 2:21pm Directive Response Recor ded Date/Time Advance Directives No 12:02pm Health Care Power of Clean Rice Broker No 03/24/18 12:02pm Organ Donor Yes 03/24/18 12:02pm Resuscitation Status Full Code 03/24/18 12:02pm Discharge Instructions No hospital discharge instructions. Patient Instructions Physician Instructions New, Converted or Re-Newed RX: Transmitted to Pharmacy Plan of Care/Instructions/FU: Follow up with Dr. Garcia in 2-3 weeks. Take medication as directed. Activity as Tolerated: Yes Discharge Diet: No Restrictions Care Plan Patient Instructions:: Follow up with Dr. Garcia in 2-3 weeks.Take medication as directed. No hospital discharge instruction information available. Patient Instructions Physician Instructions Patient Instructions: Followup one week as OP Resume Normal Activity: Yes Discharge Diet: No Restrictions Diet for 24 Hours: No Alcohol Driving Instructions: You May Drive No hospital discharge instruction information available. Chief Complaint and Reason for Visit Chief Complaint -Male Reason for Visit Left inguinal herni a Additional Source Comments This clinical document has been generated using [employer] software that has been certified by the Office of the National Coordinator for Health Information Technology (ONC 15.99.04.3023.Diam.31.00.0.548727) and the National Committee for Planner Scheduler (NCQA, as an eMeasure certified technology). FOR RECORDS PERTAINING TO PATIENTS WHO ARE OR HAVE BEEN ENROLLED IN A CHEMICAL D EPENDENCY/SUBSTANCE ABUSE PROGRAM, SOME INFORMATION MAY BE OMITTED. This clinica l summary was aggregated from multiple sources. Caution should be exercised in using it in the provision of clinical care. This summary normalizes information from multiple sources, and as a consequence, information in this document may ma terially change the coding, format and clinical context of patient data. In joshua tion, data may be omitted in some cases. CLINICAL DECISIONS SHOULD BE BASED ON T HE PRIMARY CLINICAL RECORDS. [employer] provides no warranty or guara ntee of the accuracy or completeness of information in this document.The followi ng information is based on time limited clinical information
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
== END 2019-10-23 14:02 | disposition home or self-care (01) ==
LOC: EDUNIT# 12:49 → ER 12:50
DX: I10 Essential (primary) hypertension (principal); Z88.5 Allergy status to narcotic agent; Z82.49 Family history of ischemic heart disease and other diseases of the circulatory system; Z91.14 Patient's other noncompliance with medication regimen
CPT/HCPCS: 36415; 80048; 85025; 85652

== ENCOUNTER → 2019-10-28 | Outpatient (CLI) | payer BC ==
--- NOTE | 2019-10-28 17:56 | Diagnostic Imaging Report ---
PROCEDURE: CT head without contrast. TECHNIQUE: Multiple contiguous axial images were obtained through the brain without the use of intravenous contrast. Auto Exposure Controls were utilized during the CT exam to meet ALARA standards for radiation dose reduction. INDICATION: Intractable head pain. COMPARISON: 11/16/2016. FINDINGS: There is no intracranial hemorrhage. No hydrocephalus, edema, mass, or mass effect. There is no sulcal effacement. No evidence for an elevation in the intracranial pressures. Mastoid air cells and middle ear cavities appear clear. There is a mucus retention cyst in the right maxillary sinus. No air-fluid level. No acute calvarial abnormality. There has been no change from the comparison study. IMPRESSION: Stable unremarkable CT head. Dictated by: Dictated on workstation # [id number]
== END ==
LOC: RAD 17:08
PROVIDERS: ATTEND Family Medicine
DX: R51 Headache (principal)
CPT/HCPCS: 70450

== ENCOUNTER → 2021-05-16 | Outpatient (CLI) | payer OTHER ==
[~2021-05-16] MED LIST changes: -ENAL20TA PO; +ENAL20TA16 PO
--- NOTE | 2021-05-16 16:36 | Diagnostic Imaging Report ---
INDICATION: Pain and bruising. Injury. COMPARISON: 09/29/2010. FINDINGS: Multiple radiographic views of the bilateral ankles were obtained. There is no acute fracture or dislocation on either side. No focal osseous lesions are seen. The surrounding soft tissue structures are unremarkable. There are no radiopaque foreign bodies. IMPRESSION: Unremarkable radiographic exam of the bilateral ankles. The report was called and faxed to the doctor by conor@4:35 PM. Dictated by: Dictated on workstation # [id number]
--- NOTE | 2021-05-16 16:36 | Diagnostic Imaging Report ---
INDICATION: Bruising and swelling. Injury. Pain. COMPARISON: None. FINDINGS: Multiple radiographic views of the bilateral feet were obtained and show no fractures, dislocations, or other acute bony abnormalities. Joint spaces are well maintained throughout. The soft tissues appear unremarkable. No radiopaque foreign bodies are identified. IMPRESSION: Unremarkable radiographic exam of the bilateral feet. The report was called and faxed to the doctor by conor@4:35 PM. Dictated by: Dictated on workstation # [id number]
== END ==
LOC: RAD 15:50
DX: S99.911A Unspecified injury of right ankle, initial encounter (principal); X58.XXXA Exposure to other specified factors, initial encounter

== ENCOUNTER 2021-10-25 17:07 | Emergency (ER) | payer BC, OTHER ==
[2021-10-25] MEDS ORDERED: fentaNYL INJ 100 MCG/2 ML AMP IVP ONE (17:45)
[2021-10-25] MEDS ORDERED: ORPHENADRINE 60 MG/2 ML (NORFLEX) AMP (ED ONLY) IVP ONE (17:45)
--- NOTE | 2021-10-25 17:50 | ED Fall/Injury ---
General Chief Complaint: Trauma-Non Activation Stated Complaint: BACK PAIN Nursing Triage Note: L LOW BACK PAIN Source: patient Exam Limitations: no limitations History of Present Illness Date Seen by Provider: October 25, 2021 Time Seen by Provider: 17:34 Initial Comments This is a well-appearing 31-year-old male who presented to the ER via [facility] for complaints of back pain after he slipped off of his porch and landed on wood stairs on his deck. Allergies and Home Medications Allergies Coded Allergies: meperidine (Unverified Allergy, Unknown, 03/24/18) Patient Home Medication List Cyclobenzaprine HCl (Cyclobenzaprine HCl) 10 Mg Tablet, 10 MG PO Q8H PRN for SPASMS Prescribed by: JACKELIN MORALES on 10/25/211904 Enalapril Maleate (Enalapril Maleate) 20 Mg Tablet, 20 MG PO DAILY, (Reported) Entered as Reported by: RUDDY JENSEN on 02/14/16 1427 Oxycodone HCl/Acetaminophen (Oxycodone-Acetaminophen 5-325) 5 Mg-325 Mg Tablet, 1 EACH PO Q6H PRN for PAIN-MODERATE Prescribed by: JACKELIN MORALES on 10/25/211904 Past Doourwr-Slorzr-Ijzbok Hx Patient Social History Tobacco Use?: No Substance use?: No Alcohol Use?: Yes Alcohol type: Beer Alcohol Frequency: Once in a while Pt feels they are or have been: No Immunizations Up To Date Tetanus Booster (TDap): Less than 5yrs First/Initial COVID19 Vaccinat: SEPTEMBER 11, 2020 Second COVID19 Vaccination Bruce: OCTOBER 09, 2020 COVID19 Vaccine Pocket Cutter: MODERNA Seasonal Allergies Seasonal Allergies: No Past Medical History Surgery/Hospitalization HX: HTN TONSILS Surgeries: No Respiratory: No Cardiac: No Hypertension Neurological: No Headaches /Migraines Reproductive Disorders: No HIV/AIDS: No Genitourinary: No Gastrointestinal: No Chronic Diarrhea Musculoskeletal: No Endocrine: No HEENT: No Loss of Vision: Denies Hearing Impairment: Denies Cancer: No Psychosocial: No Anxiety Integumentary: No Blood Disorders: No Adverse Reaction/Blood Tranf: No Family Medical History Alcoholism 19 FATHER Arthritis G8 SISTER Colon cancer 19 MOTHER Hypertension 19 MOTHER GRANDMOTHER Myocardial infarction GRANDFATHER Severe allergy 19 MOTHER Thyroid disease 19 MOTHER No Family History of: AIDS Abdominal aortic aneurysm [place]'s disease Alzheimer's disease Aphasia Asthma Cancer of mouth Cardiovascular disease Cataracts Completed stroke Congenital disease Congenital heart disease Coronary thrombosis Cystic fibrosis Deafness or hearing loss Dementia Diabetes mellitus Drug abuse Dysphasia Fibrocystic disease of breast Gastroenteritis Glaucoma Headache disorder Hypercholesterolemia Infertility Kidney disease Neoplasm Not obtainable due to adoption Osteoporosis Parkinson's disease Prostate cancer Psychosocial problem Respiratory disorder Seizure disorder Tuberculosis Visual disorder Physical Exam Vital Signs Vital Signs - First Documented 10/25/21 17:07 Temp 36.3 Pulse 104 Resp 20 B/P (MAP) 178/101 (126) Capillary Refill : Height, Weight, BMI Height: 5'10.00" Weight: 255lbs. 4.0oz. 115.815382ya; 38.00 BMI Method:Stated Progress/Results/Core Measures Results/Orders My Orders Orders - JACKELIN MORALES APRN Fentanyl Inj (Sublimaze Injection) (10/25/21 17:45) Orphenadrine Inj (Ed Only) (Norflex Inje (10/25/21 17:45) Ct Thoracic/Lumbar Spine Wo (10/25/21 17:40) Sacrum And Coccyx (10/25/21 17:40) Hydromorphone Injection (Dilaudid Inject (10/25/21 19:00) Medications Given in ED Current Medications Medications Dose Ordered Sig/Jerson Route Start Time Stop Time Status Last Admin Dose Admin Fentanyl Citrate 50 mcg ONCE ONCE IVP 10/25/21 17:45 10/25/21 17:46 DC 10/25/21 17:47 50 MCG Hydromorphone HCl 1 mg ONCE ONCE IV 10/25/21 19:00 10/25/21 19:01 DC 10/25/21 18:59 1 MG Orphenadrine Citrate 30 mg ONCE ONCE IVP 10/25/21 17:45 10/25/21 17:46 DC 10/25/21 17:47 30 MG Vital Signs/I&O 10/25/21 17:07 Temp 36.3 Pulse 104 Resp 20 B/P (MAP) 178/101 (126) Blood Pressure Mean: 126 Departure Impression Primary Impression: Fracture of transverse process of lumbar vertebra Disposition: 01 HOME, SELF-CARE Condition: Stable Departure-Patient Inst. Decision time for Depature: 18:43 Patient Instructions: Fracture, Adult ED Add. Discharge Instructions: Plan: 1. Take Oxycodone as directed. Do not drive while taking. May cause constipation, you can take an over the counter stool softener. 2. Follow up with your primary care provider, call to schedule appointment. 3. No heavy lifting, bending, twisting until cleared by your primary care provider. 4. Wear your TLSO brace whenever you are up ambulating. 5. Take Flexeril every 8 hours as needed for muscle spasm. 6. Return for any new, concerning, or worsening symptoms. All discharge instructions reviewed with patient and/or family. Voiced understanding. Scripts Cyclobenzaprine HCl (Cyclobenzaprine HCl) 10 Mg Tablet 10 MG PO Q8H PRN for SPASMS, #30 TAB 0 Refills Prov: JACKELIN MORALES RECORD PRESS TENDER 10/25/21 Oxycodone HCl/Acetaminophen (Oxycodone-Acetaminophen 5-325) 5 Mg-325 Mg Tablet 1 EACH PO Q6H PRN for PAIN-MODERATE MDD 6 for 5 Days, #20 TAB 0 Refills Prov: JACKELIN MORALES RECORD PRESS TENDER 10/25/21 JACKELIN MORALES RECORD PRESS TENDER October 25, 2021 17:50
--- NOTE | 2021-10-25 18:33 | Diagnostic Imaging Report ---
EXAMINATION: CT thoracic and lumbar spine without contrast. TECHNIQUE: Multiple contiguous axial images were obtained through the thoracic and lumbar spine without the use of intravenous contrast. Sagittal and coronal reformations were then performed. All CT scans use one or more of the following dose optimizing techniques: automated exposure control, MA and/or KvP adjustment based on patient size and exam type or iterative reconstruction. HISTORY: Back pain after fall COMPARISON: 09/24/2016 FINDINGS: The alignment of the thoracic and lumbar spine is normal. Vertebral body heights are maintained. There are minimally displaced fractures of the left L1 and L2 transverse processes. Facet joints are normal. Disk heights are normal. There is no spinal canal stenosis. Limited views of the soft tissues show no abnormality. The aorta is normal. IMPRESSION: 1. Acute minimally displaced fractures of the left L1 and L2 transverse processes. Dictated by: Dictated on workstation # [id number]
--- NOTE | 2021-10-25 18:37 | Diagnostic Imaging Report ---
EXAMINATION: 3 views of the sacrum and coccyx. INDICATION: Pain. Fall. FINDINGS: There are no findings of diastases of the pubic symphysis or of the SI joints. The pelvic ring appears intact. There is no buckling of the cortex of the sacral foramina evident. The lateral view demonstrates no cortical disruption of the ventral margins of the sacrum or irregular displacement of the distal coccygeal segments. IMPRESSION: Negative radiographs of the sacrum and coccyx. Dictated by: Dictated on workstation # [id number]
[2021-10-25] MEDS ORDERED: HYDROmorphone 2 MG/ML VIAL (DILAUDID) IV ONE (19:00)
[2021-10-25] MEDS ORDERED: OXYC1TAB11 PO (19:05)
[2021-10-25] MEDS ORDERED: CYCL10TA25 PO (19:05)
[2021-10-25 19:27] VITALS: BP 127/80
== END 2021-10-25 19:23 | disposition home or self-care (01) ==
LOC: EDUNIT# 17:10 → ER 17:11
DX: S32.018A Other fracture of first lumbar vertebra, initial encounter for closed fracture (principal); S32.028A Other fracture of second lumbar vertebra, initial encounter for closed fracture; W01.198A Fall on same level from slipping, tripping and stumbling with subsequent striking against other object, initial encounter; Y92.008 Other place in unspecified non-institutional (private) residence as the place of occurrence of the external cause
CPT/HCPCS: 72128; 72131; 72220

== ENCOUNTER → 2021-11-09 | Outpatient (CLI) | payer BC ==
[~2021-11-09] MED LIST changes: +CYCL10TA25 PO; +OXYC1TAB11 PO
--- NOTE | 2021-11-09 16:04 | Diagnostic Imaging Report ---
INDICATION: Left hip pain. TIME OF EXAM: 3:21 PM. FINDINGS: Two views of the left hip demonstrate normal femoroacetabular alignment. The joint space is well maintained. The femoral head and neck are intact. No fractures are seen. IMPRESSION: No acute bony abnormality is detected. Dictated by: Dictated on workstation # [id number]
== END ==
LOC: RAD 15:01
PROVIDERS: ATTEND Orthopaedic Surgery Orthopaedic Trauma
DX: M25.552 Pain in left hip (principal)
CPT/HCPCS: 73502

== ENCOUNTER 2022-08-16 18:07 | Emergency (ER) | payer BC ==
[~2022-08-16] VITALS: Ht 177.8 cm; Wt 127.0 kg
--- NOTE | 2022-08-16 18:40 | ED Back Pain ---
General Chief Complaint: Back Problems Stated Complaint: FALL/BACK PAIN Nursing Triage Note: PT AMB TO [facility] 7 WITH CC OF LOWER LEFT BACK PAIN FOLLOWING A FALL ON SUNDAY. PT PREVIOUSLY HAD A FRACTURE OF L1,L2,AND L5 IN OCTOBER 2021. Source of Information: Patient Exam Limitations: No Limitations (CLARITA DOE APRN) History of Present Illness Date Seen by Provider: Aug 16, 2022 Time Seen by Provider: 18:22 Initial Comments 32-year-old male presents to the ED with excruciating lower back pain. States that he fell on Sunday landing flat on his back. Reports previously fracturing L1 and L2 from a fall last summer. Reports the pain has been getting worse. He has been taking Flexeril and Tylenol without relief. Reports some mild numbness in his left gluteus. Denies loss of bowel bladder. Patient was able to walk back to room. Denies saddle paresthesia. Past medical history includes hypertension, currently takes amlodipine, enalapril, and metoprolol. (CLARITA DOE APRN) Allergies and Home Medications Allergies Coded Allergies: meperidine (Unverified Allergy, Unknown, 03/24/18) Patient Home Medication List Home Medication List Reviewed: Yes (CLARITA DOE APRN) Baclofen (Baclofen) 10 Mg Tablet, 10 MG PO TID PRN for prn Prescribed by: Clarita Doe on 08/16/221999 Cyclobenzaprine HCl (Cyclobenzaprine HCl) 10 Mg Tablet, 10 MG PO Q8H PRN for SPASMS Prescribed by: JACKELIN MORALES on 10/25/211904 Enalapril Maleate (Enalapril Maleate) 20 Mg Tablet, 20 MG PO DAILY, (Reported) Entered as Reported by: RUDDY JENSEN on 02/14/16 1427 Oxycodone HCl/Acetaminophen (Oxycodone-Acetaminophen 5-325) 5 Mg-325 Mg Tablet, 1 EACH PO Q6H PRN for PAIN-MODERATE Prescribed by: JACKELIN MORALES on 10/25/211904 Oxycodone HCl/Acetaminophen (Percocet 10-325 mg Tablet) 1 Each Tablet, 1 TAB PO Q8H PRN for PAIN-MODERATE Prescribed by: Clarita Doe on 08/16/222000 Review of Systems Constitutional: see HPI (CLARITA DOE APRN) Past Kjtzoos-Funryd-Yqveki Hx Patient Social History Tobacco Use?: No Substance use?: No Alcohol Use?: No (CLARITA DOE APRN) Immunizations Up To Date Tetanus Booster (TDap): Less than 5yrs Influenza Vaccine Up-to-Date: No; Not Current First/Initial COVID19 Vaccinat: SEPTEMBER 11, 2020 Second COVID19 Vaccination Bruce: OCTOBER 09, 2020 Third COVID19 Vaccination Date: SEPTEMBER 11, 2020 (CLARITA DOE APRN) Seasonal Allergies Seasonal Allergies: No (CLARITA DOE APRN) Past Medical History Surgery/Hospitalization HX: HTN TONSILS Surgeries: No Respiratory: No Cardiac: No Hypertension Neurological: No Headaches /Migraines Reproductive Disorders: No HIV/AIDS: No Genitourinary: No Gastrointestinal: No Chronic Diarrhea Musculoskeletal: No Endocrine: No HEENT: No Loss of Vision: Denies Hearing Impairment: Denies Cancer: No Psychosocial: No Anxiety Integumentary: No Blood Disorders: No Adverse Reaction/Blood Tranf: No (CLARITA DOE APRN) Family Medical History Alcoholism 19 FATHER Arthritis G8 SISTER Colon cancer 19 MOTHER Hypertension 19 MOTHER GRANDMOTHER Myocardial infarction GRANDFATHER Severe allergy 19 MOTHER Thyroid disease 19 MOTHER No Family History of: AIDS Abdominal aortic aneurysm Cyrus's disease Alzheimer's disease Aphasia Asthma Cancer of mouth Cardiovascular disease Cataracts Completed stroke Congenital disease Congenital heart disease Coronary thrombosis Cystic fibrosis Deafness or hearing loss Dementia Diabetes mellitus Drug abuse Dysphasia Fibrocystic disease of breast Gastroenteritis Glaucoma Headache disorder Hypercholesterolemia Infertility Kidney disease Neoplasm Not obtainable due to adoption Osteoporosis Parkinson's disease Prostate cancer Psychosocial problem Respiratory disorder Seizure disorder Tuberculosis Visual disorder Physical Exam Vital Signs Vital Signs - First Documented 08/16/22 18:12 Temp 36.4 Pulse 114 B/P (MAP) 176/106 (129) Pulse Ox 95 O2 Delivery Room Air (ABBY LOMBARDO DO) Vital Signs Capillary Refill : (CLARITA DOE APRN) Height, Weight, BMI Height: 5'10.00" Weight: 255lbs. 4.0oz. 115.905489mf; 40.00 BMI Method:Stated General Appearance: WD/WN, Mild Distress Neck: Normal Inspection, Supple Cardiovascular: No Edema, No Gallop, No JVD, No Murmur, Normal Peripheral Pulses, Tachycardia Respiratory: Lungs Clear, Normal Breath Sounds, No Accessory Muscle Use, No Respiratory Distress Back: Vertebral Tenderness (tenderness from T11 to coccyx), Other (muscle tenderness in left lower back) Extremity: Normal Inspection, Normal Range of Motion Neurologic/Psychiatric: Alert, Normal Mood/Affect Skin: Normal Color, Warm/Dry (CLARITA DOE APRN) Progress/Results/Core Measures Results/Orders Vital Signs/I&O 08/16/22 08/16/22 18:12 20:15 Temp 36.4 Pulse 114 89 B/P (MAP) 176/106 (129) 148/80 Pulse Ox 95 98 O2 Delivery Room Air Room Air (AIDAN LOMBARDOA Tyson DO) Blood Pressure Mean: 129 Progress Progress Note #1: Time: 18:39 Progress Note Patient seen and evaluated, resting comfortably in bed, mild distress. Based on exam and symptoms, concern for vertebral fracture. CT thoracic lumbar spine ordered as well as coccyx and sacral x-ray. Discussed pain management with patient. Reports last summer when he fractured his L1 and L2, they tried fentanyl and morphine which did not provide relief. Reports the only thing that helped was Dilaudid. Patient states that he has leftover oxycodone from the fracture, has not taken it due to having a [employer] job. I do not think that patient is drug-seeking. Dilaudid shot ordered at this time. Progress Note #2: Time: 19:[address] and x-ray reviewed. No acute fractures. Results discussed with patient. Patient reports no relief from dilaudid injection. Will order norflex, toradol, and percocet here and discharge with prescription for baclofen and percocet. Discharge instructions and return precautions provided. (CLARITA DOE APRN) Diagnostic Imaging Diagonstic Imaging: CT Plain Films/CT/US/NM/MRI: other (spine) Comments [facility] [place], [place] NAME: IDA NOLASCO [facility] REC#: [id number] PT STATUS: REG ER : 1990 PHYSICIAN: CLARITA DOE APRN ADMIT DATE: 08/16/22/ER Signed Date of Exam:08/16/22 CT THORACIC/LUMBAR SPINE WO PROCEDURE: CT thoracic and lumbar spine without contrast. TECHNIQUE: Multiple contiguous axial images were obtained through the thoracic and lumbar spine without the use of intravenous contrast. Sagittal and coronal reformations were then performed. All CT scans use one or more of the following dose optimizing techniques: automated exposure control, MA and/or KvP adjustment based on patient size and exam type or iterative reconstruction. INDICATION: Acute back pain after fall. COMPARISON: 10/25/2021. FINDINGS: Thoracic spine: Alignment is normal. There is no acute fracture within the thoracic spine. Visualized aspects of the posterior ribs are intact. No high-grade spinal canal stenosis. No paravertebral hematoma. Lumbar spine: No traumatic malalignment. There is no acute fracture. No high-grade spinal canal stenosis. No paravertebral hematoma. Diffuse hypoattenuation of the liver is most indicative of steatosis. The visualized aspects of the sacrum are normal. IMPRESSION: No fracture in the thoracic or lumbar spine. Dictated by: Dictated on workstation # [id number] Dict: 08/16/221932 Trans: 08/16/222007 [facility] [id number] Interpreted by: BENJAMIN ROMO MD Electronically signed by: BENJAMIN ROMO MD 08/16/222007 Diagonstic Imaging: Xray Plain Films/CT/US/NM/MRI: other (sacrum and coccyx) Comments [facility] [place] NAME: IDA NOLASCO [facility] REC#: [id number] PT STATUS: REG ER : 1990 PHYSICIAN: CLARITA DOE APRN ADMIT DATE: 08/16/22/ER Signed Date of Exam:08/16/22 SACRUM AND COCCYX INDICATION: Tenderness along sacrum and coccyx. EXAMINATION: AP and lateral views of the sacrum and coccyx were obtained. FINDINGS: No fracture or acute bony abnormality is seen. There is no destructive bony lesion. IMPRESSION: Negative sacrum and coccyx. Dictated by: Dictated on workstation # [id number] Dict: 08/16/221928 Trans: 08/16/221942 [facility] [phone] Interpreted by: AIRAM LEOS MD Electronically signed by: AIRAM LEOS MD 08/16/221942 (CLARITA DOE APRN) Departure Impression Primary Impression: Back pain Disposition: 01 HOME, SELF-CARE Condition: Stable Departure-Patient Inst. Decision time for Depature: 19:54 (CLARITA DOE APRN) Referrals: RIKI GARCIA MD (PCP/Family) Primary Care Physician Patient Instructions: Back Muscle Strain (DC) Add. Discharge Instructions: Take Percocet as needed for pain. Take muscle relaxer as needed for pain. Take 800 mg of ibuprofen every 8 hours with food to help with inflammation. Follow-up with your primary care provider. Return for uncontrollable pain, inability to walk, numbness in your inner thighs, loss of control of your bowel or bladder, or any other new, concerning, or worsening symptoms. All discharge instructions reviewed with patient and/or family. Voiced understanding. Scripts Baclofen (Baclofen) 10 Mg Tablet 10 MG PO TID PRN for prn, #21 TAB 0 Refills Prov: CLARITA DOE APRN 08/16/22 Oxycodone HCl/Acetaminophen (Percocet 10-325 mg Tablet) 1 Each Tablet 1 TAB PO Q8H PRN for PAIN-MODERATE MDD 3 TABS, #15 TAB 0 Refills Prov: CLARITA DOE APRN 08/16/22 ATTENDING PHYSICIAN NOTE: I WAS PHYSICALLY PRESENT ER PHYSICIAN, BUT I WAS NOT INVOLVED IN ANY DECISION MAKING OR ANY CARE OF THIS PATIENT AND I AM NOT COLLABORATING PHYSICIAN. (ABBY LOMBARDO DO) CLARITA DOE APRN Aug 16, 2022 18:40 ABBY LOMBARDO DO Aug 19, 2022 06:25
[2022-08-16] MEDS ORDERED: HYDROmorphone 2 MG/ML VIAL (DILAUDID) IM ONE (18:45)
--- NOTE | 2022-08-16 19:34 | Diagnostic Imaging Report ---
INDICATION: Tenderness along sacrum and coccyx. EXAMINATION: AP and lateral views of the sacrum and coccyx were obtained. FINDINGS: No fracture or acute bony abnormality is seen. There is no destructive bony lesion. IMPRESSION: Negative sacrum and coccyx. Dictated by: Dictated on workstation # [id number]
--- NOTE | 2022-08-16 19:41 | Diagnostic Imaging Report ---
PROCEDURE: CT thoracic and lumbar spine without contrast. TECHNIQUE: Multiple contiguous axial images were obtained through the thoracic and lumbar spine without the use of intravenous contrast. Sagittal and coronal reformations were then performed. All CT scans use one or more of the following dose optimizing techniques: automated exposure control, MA and/or KvP adjustment based on patient size and exam type or iterative reconstruction. INDICATION: Acute back pain after fall. COMPARISON: 10/25/2021. FINDINGS: Thoracic spine: Alignment is normal. There is no acute fracture within the thoracic spine. Visualized aspects of the posterior ribs are intact. No high-grade spinal canal stenosis. No paravertebral hematoma. Lumbar spine: No traumatic malalignment. There is no acute fracture. No high-grade spinal canal stenosis. No paravertebral hematoma. Diffuse hypoattenuation of the liver is most indicative of steatosis. The visualized aspects of the sacrum are normal. IMPRESSION: No fracture in the thoracic or lumbar spine. Dictated by: Dictated on workstation # [id number]
[2022-08-16] MEDS ORDERED: oxyCODONE/APAP 5/325MG (PERCOCET 5) TABLET PO ONE (20:00)
[2022-08-16] MEDS ORDERED: BACL10TA PO (20:00)
[2022-08-16] MEDS ORDERED: KETOROLAC 30 MG/ML VIAL IM ONE (20:00)
[2022-08-16] MEDS ORDERED: ORPHENADRINE 60 MG/2 ML (NORFLEX) AMP (ED ONLY) IM ONE (20:00)
[2022-08-16] MEDS ORDERED: OXYC1TAB12 PO (20:00)
[2022-08-16] MEDS ORDERED: oxyCODONE/APAP 10/325MG (PERCOCET 10) TABLET PO ONE (20:00)
[2022-08-16 20:15] VITALS: BP 148/80
== END 2022-08-16 20:16 | disposition home or self-care (01) ==
LOC: EDUNIT# 18:07 → ER 18:09
DX: M54.50 Low back pain, unspecified (principal); Z87.828 Personal history of other (healed) physical injury and trauma; Z88.6 Allergy status to analgesic agent; W18.30XA Fall on same level, unspecified, initial encounter
CPT/HCPCS: 72128; 72131; 72220